=== PATIENT | female | born 1955 | race Hispanic/Latino ===

== ENCOUNTER 2017-08-05 09:44 | Outpatient (CLI) | payer BC ==
[2017-08-05 10:23] LABS: Hematocrit 47.1 % (30.3-42.9); Hemoglobin 15.7 gm/dl (10.1-14.3); Mean Corpuscular HGB Conc 33 % (30-34); Mean Corpuscular Hemoglobin 29 pg (28-32); Mean Corpuscular Volume 86 fl (79-97); Platelet Count 364 K/mm3 (140-440); Red Blood Count 5.45 M/mm3 (3.65-5.03); Red Cell Distribution Width 14.8 % (13.2-15.2); White Blood Count 15.2 K/mm3 (4.5-11.0)
[2017-08-05 10:34] LABS: Alanine Aminotransferase 36 units/L (7-56); Albumin 3.8 g/dL (3.9-5); Albumin/Globulin Ratio 1.3 %; Alkaline Phosphatase 38 units/L (35-129); Anion Gap 19 mmol/L; BUN/Creatinine Ratio 31; Blood Urea Nitrogen 25 mg/dL (7-17); Calcium 8.5 mg/dL (8.4-10.2); Carbon Dioxide 24 mmol/L (22-30); Chloride 97.5 mmol/L (98-107); Glucose 123 mg/dL (65-100); Sodium 136 mmol/L (137-145); Total Protein 6.8 g/dL (6.3-8.2)
--- NOTE | 2017-08-05 12:20 | Cat Scan Report ---
FINAL REPORT EXAM: CT CHEST W CON HISTORY: RIGHT LOWER LOBE NODULE TECHNIQUE: CT of chest with IV contrast. Coronal and sagittal reconstructed images provided. PRIORS: None currently available. FINDINGS: No pneumothorax. No effusion. No consolidation. No endobronchial lesion. Minimal scarring both lung bases. No pulmonary nodules. Main pulmonary arteries are unremarkable. No aortic aneurysm. Heart size unremarkable. No pericardial effusion. There is no axillary adenopathy. There is no hilar or mediastinal mass or adenopathy. Low-attenuation lesion with peripheral irregular enhancement in the right liver on series 3:96 measures 3.6 cm and may represent a hemangioma. Fatty liver. Images of the esophagus are unremarkable. No suspicious osseous lesions on this limited examination of the skeleton. Metastatic disease better evaluated with bone scan. Degenerative changes are present in the spine. IMPRESSION: No pulmonary nodule. Fatty liver. Suspect large hemangioma in the right liver. Correlation with liver ultrasound may be helpful if clinically indicated.
== END 2017-08-05 09:45 | disposition home or self-care (01) ==
LOC: CT 09:44
PROVIDERS: ATTEND Internal Medicine
DX: J98.4 Other disorders of lung (principal); R91.8 Other nonspecific abnormal finding of lung field; K76.0 Fatty (change of) liver, not elsewhere classified; M47.894 Other spondylosis, thoracic region
CPT/HCPCS: 36415; 71260; 80053; 84436; 84443; 85027; Q9967

== ENCOUNTER 2021-01-12 09:22 | Outpatient (CLI) | payer MEDICARE ==
--- NOTE | 2021-01-12 10:44 | Mammography Report ---
DIGITAL SCREENING MAMMOGRAM WITH CAD, 01/12/2021 INDICATION: Routine screening mammography. TECHNIQUE: Digital bilateral 2D mammography was obtained in the craniocaudal and mediolateral obliq ue projections. This examination was interpreted with the benefit of Computer-Aided Detection analysi s. COMPARISON: None. FINDINGS: Breast Density: There are scattered areas of fibroglandular density. There is no evidence of dominant mass, suspicious calcifications or architectural distortion in eithe r breast. IMPRESSION: Follow up recommendation: Routine yearly BI-RADS Category 1: Negative. A "normal" or negative report should not discourage follow up or biopsy of a clinically significant f inding. A written summary of these findings will be mailed to the patient. The patient will be entered into a mammography reporting system which will generate a reminder letter for the patient's next appointmen t at the appropriate interval. The [employer] recommends yearly mammograms starting at age 40 and continuing as l claudia as a woman is in good health. Breast MRI is recommended for women with an approximate 20-25% or greater lifetime risk of breast cancer, including women with a strong family history of breast or ova navin cancer or who have been treated for Hodgkin's disease. Signer Name: Clemente Contreras MD Signed: 01/12/2021 10:40 AM Workstation Name: [email or web address]
== END 2021-01-12 09:23 | disposition home or self-care (01) ==
LOC: MAMMO 09:22
PROVIDERS: ATTEND Family Medicine
DX: Z12.31 Encounter for screening mammogram for malignant neoplasm of breast (principal)
CPT/HCPCS: 77067

== ENCOUNTER 2021-10-07 12:24 | Outpatient (CLI) | payer MEDICARE ==
[2021-10-07 14:26] LABS: Basophils # (Auto) 0.1 K/mm3 (0.0-0.1); Basophils % (Auto) 0.8 % (0.0-1.8); Eosinophils % (Auto) 0.3 % (0.0-4.3); Lymphocytes # (Auto) 3.7 K/mm3 (1.2-5.4); Lymphocytes % (Auto) 36.6 % (13.4-35.0); Mean Corpuscular HGB Conc 33 % (30-34); Mean Corpuscular Volume 89 fl (79-97); Monocytes # (Auto) 0.8 K/mm3 (0.0-0.8); Monocytes % (Auto) 7.4 % (0.0-7.3); Platelet Count 343 K/mm3 (140-440); Red Blood Count 4.71 M/mm3 (3.65-5.03); Red Cell Distribution Width 14.7 % (13.2-15.2)
[2021-10-07 14:44] LABS: ABG Base Excess 0.9 mmol/L (-2.0-3.0); ABG HCO3 25.1 mmol/L (20.0-26.0); ABG Methemoglobin 0.4 % (0.0-1.5); ABG Oxygen Saturation 96.8 % (95.0-99.0); ABG PCO2 38.9 mm Hg; ABG PH 7.428 pH Units (7.350-7.450); ABG PO2 81.3 mm Hg (80.0-90.0)
[2021-10-07 14:47] LABS: Alanine Aminotransferase 17 units/L (7-56); Albumin 4.1 g/dL (3.9-5); BUN/Creatinine Ratio 8; Blood Urea Nitrogen 9 mg/dL (7-17); Calcium 9.5 mg/dL (8.4-10.2); Chol/HDL Ratio 2.55 %; HDL Cholesterol 43 mg/dL (40-59); Hemolysis Index 6; LDL Cholesterol,Direct 38 mg/dL (50-130)
--- NOTE | 2021-10-07 15:31 | XRay Report ---
CHEST PA AND LATERAL VIEWS INDICATION: POSITIVE COVID Z86.16, J44.9. COMPARISON: None. FINDINGS: Support devices: None. Heart: Within normal limits. Lungs/Pleura: Somewhat streaky bibasilar opacities may be due to scarring or atelectasis. No consolid ation or effusion. No pneumothorax. IMPRESSION: 1. No acute findings. Presumed scarring versus atelectasis in the lung bases. Signer Name: Leonel Goodman MD Signed: 10/07/2021 3:26 PM Workstation Name: [email or web address]
--- NOTE | 2021-10-08 13:19 | Electrocardiograph Report ---
[facility] Test Date: 2021-10-07 Test Time: 13:33:33 Pat Name: JAIME DUMAS Department: Room: Gender: F Mental Health Clinician: LUIS : 1955 Requested By: VERENICE SZYMANSKI Order Number: [id number] Reading MD: Noreen Garcia Measurements Intervals [place] Rate: 55 P: 91 AR: 205 QRS: 32 QRSD: 99 T: 82 QT: 438 QTc: 421 Interpretive Statements Sinus rhythm Low voltage QRS No previous ECG available for comparison Electronically Signed On 10-08-2021 13:19:17 EST by Noreen Garcia
== END 2021-10-07 12:25 | disposition home or self-care (01) ==
LOC: CARD 12:24
PROVIDERS: ATTEND Internal Medicine
DX: J44.9 Chronic obstructive pulmonary disease, unspecified (principal); Z86.16 Personal history of COVID-19; Z68.36 Body mass index [BMI] 36.0-36.9, adult; I10 Essential (primary) hypertension
CPT/HCPCS: 36415; 36600; 71046; 80053; 80061; 82550; 82728; 82803; 83615; 84436; 84443; 84484; 85025; 85379; 86140; 93005; 93010

== ENCOUNTER 2022-04-01 08:31 | Emergency (ER) | payer MEDICARE ==
[2022-04-01] MEDS ORDERED: SODIUM CHLORIDE 0.9% 1000 ML 1,000 ML IV ONE (08:53)
--- NOTE | 2022-04-01 09:30 | Cat Scan Report ---
CT HEAD WITHOUT CONTRAST INDICATION / CLINICAL INFORMATION: Syncope. TECHNIQUE: Axial imaging performed from the skull apex through the skull base without the use of cont rast. Sagittal and coronal reformatted images. All CT scans at this location are performed using CT dose reduction for ALARA by means of automated exposure control. COMPARISON: None available. FINDINGS: CEREBRAL PARENCHYMA: No significant abnormality. No acute territorial infarct. HEMORRHAGE: None. EXTRA-AXIAL SPACES: Normal in size and morphology for the patient's age. VENTRICULAR SYSTEM: Normal in size and morphology for the patient's age. MIDLINE SHIFT OR HERNIATION: None. CEREBELLUM / BRAINSTEM: No significant abnormality. CALVARIUM: No significant abnormality. ORBITS: Normal as visualized. PARANASAL SINUSES / MASTOID AIR CELLS: Normal as visualized. SOFT TISSUES of HEAD: No significant abnormality. ADDITIONAL FINDINGS: None. IMPRESSION: No acute intracranial abnormality. Signer Name: Angel Dan Jr, MD Signed: 04/01/2022 9:26 AM Workstation Name: [id number]
--- NOTE | 2022-04-01 09:39 | XRay Report ---
CHEST 1 VIEW 04/01/2022 9:09 AM INDICATION / CLINICAL INFORMATION: Syncope. COMPARISON: 10/07/2021 FINDINGS: SUPPORT DEVICES: None. HEART / MEDIASTINUM: No significant abnormality. LUNGS / PLEURA: No significant pulmonary or pleural abnormality. No pneumothorax. ADDITIONAL FINDINGS: No significant additional findings. IMPRESSION: 1. No acute findings. Signer Name: Angel Dan Jr, MD Signed: 04/01/2022 9:35 AM Workstation Name: [id number]
[2022-04-01 10:28] LABS: Hematocrit 37.2 % (30.3-42.9); Hemoglobin 12.5 gm/dl (10.1-14.3); Mean Corpuscular HGB Conc 34 % (30-34); Mean Corpuscular Volume 87 fl (79-97); Platelet Count 288 K/mm3 (140-440); Red Blood Count 4.29 M/mm3 (3.65-5.03); Red Cell Distribution Width 14.9 % (13.2-15.2)
[2022-04-01 10:36] LABS: Creatine Kinase MB 1.1 ng/mL (0.0-4.0)
[2022-04-01 10:37] LABS: INR 1.01 (0.87-1.13)
[2022-04-01 10:41] LABS: Alanine Aminotransferase 11 units/L (7-56); Albumin 3.7 g/dL (3.9-5); BUN/Creatinine Ratio 13; Blood Urea Nitrogen 14 mg/dL (7-17); Hemolysis Index 3
--- NOTE | 2022-04-01 11:04 | Emergency Department Report ---
ED General Adult HPI - General Chief complaint: Fall Stated complaint: FALL/LOSS OF CONSCIOUSNESS Time Seen by Provider: 04/01/22 08:47 Source: EMS Mode of arrival: Stretcher Limitations: Physical Limitation - History of Present Illness Initial comments: pt fell at home this morning, no recollection of fall, hypotensive at scene, diaphoretic -: Sudden, minutes(s) Severity scale (0 -10): 0 Improves with: none Worsens with: none Associated Symptoms: denies: denies other symptoms, confusion, chest pain, cough, diaphoresis, fever/chills Treatments Prior to Arrival: none - Related Data Allergies Allergy/AdvReac Type Severity Reaction Status Date / Time No Known Allergies Allergy Unverified 08/05/17 09:45 ED Review of Systems ROS: Stated complaint: FALL/LOSS OF CONSCIOUSNESS Other details as noted in HPI Constitutional: denies: chills, fever Eyes: denies: eye pain, eye discharge, vision change ENT: denies: ear pain, throat pain Respiratory: denies: cough, shortness of breath, wheezing Cardiovascular: denies: chest pain, palpitations Endocrine: no symptoms reported Gastrointestinal: denies: abdominal pain, nausea, diarrhea Genitourinary: denies: urgency, dysuria, discharge Musculoskeletal: denies: back pain, joint swelling, arthralgia Skin: denies: rash, lesions Neurological: denies: headache, weakness, paresthesias Psychiatric: denies: anxiety, depression Hematological/Lymphatic: denies: easy bleeding, easy bruising ED Past Medical Hx - Past Medical History Previous Medical History?: Yes Hx Hypertension: Yes Hx CVA: No Hx Heart Attack/AMI: No ED Physical Exam - General Limitations: Physical Limitation General appearance: alert, in no apparent distress - Head Head exam: Present: atraumatic, normocephalic - Eye Eye exam: Present: normal appearance - ENT ENT exam: Present: mucous membranes moist - Neck Neck exam: Present: normal inspection - Respiratory Respiratory exam: Present: normal lung sounds bilaterally. Absent: respiratory distress - Cardiovascular Cardiovascular Exam: Present: regular rate, normal rhythm. Absent: systolic murmur, diastolic murmur, rubs, gallop - GI/Abdominal GI/Abdominal exam: Present: soft, normal bowel sounds - Extremities Exam Extremities exam: Present: normal inspection - Back Exam Back exam: Present: normal inspection - Neurological Exam Neurological exam: Present: alert, oriented X3 - Psychiatric Psychiatric exam: Present: normal affect, normal mood - Skin Skin exam: Present: warm, dry, intact, normal color. Absent: rash ED Course Vital Signs 04/01/22 04/01/22 04/01/22 08:35 08:44 09:00 Temperature 98.3 F Pulse Rate 61 55 L Respiratory 16 15 Rate Blood Pressure 98/49 Blood Pressure 99/57 [Left] O2 Sat by Pulse 96 86 96 Oximetry 04/01/22 09:05 Temperature Pulse Rate Respiratory Rate Blood Pressure Blood Pressure [Left] O2 Sat by Pulse 100 Oximetry ED Medical Decision Making - Lab Data Result diagrams: 04/01/22 09:14 04/01/22 09:14 - EKG Data -: EKG Interpreted by Me Rate: bradycardia - EKG Data Interpretation: no acute changes - Radiology Data Radiology results: report reviewed, image reviewed - Medical Decision Making syncope work up negative head ct negative unremarkable work up , seems like vaso vegal during getting up to pee, pt requets to go home Critical care attestation.: If time is entered above; I have spent that time in minutes in the direct care of this critically ill patient, excluding procedure time. ED Disposition Clinical Impression: Vasovagal syncope Disposition: 01 HOME / SELF CARE / HOMELESS Is pt being admited?: No Does the pt Need Aspirin: No Condition: Stable Instructions: Syncope (ED), Near-Syncope, Ccor-ji-Lsas, Syncope Referrals: PRIMARY CARE, [Primary Care Provider] - 3-5 Days
[2022-04-01 11:43] VITALS: BP 98/57
[2022-04-01 14:31] LABS: Basophils % (Manual) 0 % (0.0-1.8); Eosinophils % (Manual) 0 % (0.0-4.3); Total Cells Counted 100
[2022-04-01 14:32] LABS: Platelet Estimate Consistent w Auto; RBC Morphology Normal
--- NOTE | 2022-04-04 14:36 | Electrocardiograph Report ---
[facility] Test Date: 2022-04-01 Test Time: 08:53:31 Pat Name: JAIME DUMAS Department: Room: Gender: F Power Press Operator: ER : 1955 Requested By: RAVEN MACE Order Number: [id number] Reading MD: Edgar Kelly Measurements Intervals [place] Rate: 54 P: 61 ID: [id number] QRS: 35 QRSD: 104 T: 60 QT: 454 QTc: 431 Interpretive Statements Sinus bradycardia Borderline prolonged ID interval Low voltage, extremity and precordial leads Consider inferior infarct Compared to ECG 10/07/2021 13:33:33 Myocardial infarct finding now present Sinus rhythm no longer present Electronically Signed On 04-04-2022 14:36:03 EDT by Edgar Kelly
== END 2022-04-01 11:44 | disposition home or self-care (01) ==
LOC: ED 08:31
DX: R55 Syncope and collapse (principal); I10 Essential (primary) hypertension
CPT/HCPCS: 36415; 70450; 71045; 80053; 82550; 82553; 84484; 85007; 85025; 85610; 93005; 96360; 99285; J7030